=== PATIENT | male | born 1980 | race Caucasian/White ===

== ENCOUNTER 2023-03-05 08:52 | Emergency (ER) | payer MEDICARE, MEDICAID, SELFPAY ==
[2023-03-05 08:58] VITALS: BP 175/106; PULSE 80; RESP 24; TEMP 35.8; O2SAT 98; BMI 55.8
--- NOTE | 2023-03-05 09:14 | CRLHL7_ITS ---
For Patients: As a result of the Century Cures Act, medical imaging exams and procedure reports are released immediately into your electronic medical record. You may view this report before your referring provider. If you have questions, please contact your health care provider. INDICATION: Left abdominal and left flank pain COMPARISON: None TECHNIQUE: CT examination of the abdomen and pelvis was performed without intravenous contrast. Thin section axial images were obtained from the lung bases through the pubic symphysis. Oral contrast was not administered. Please note that all CT scans at this facility use dose modulation, iterative reconstruction, and/or weight-based dosing when appropriate to reduce radiation dose to as low as reasonably achievable. FINDINGS: LUNG BASES: The lung bases as visualized appear normal.The heart size is normal at the lung bases. LIVER/BILIARY SYSTEM:Enlarged fatty infiltrated liver. No focal mass or biliary ductal dilation.The gall bladder appears normal. ADRENALS: Normal non-contrast appearance KIDNEYS, URETERS and BLADDER:No intrarenal calculi on either side. There is left-sided obstructive uropathy due to a 7.2 millimeter calcified calculus at the left ureteropelvic junction. No calculi distally. There is gas within the bladder. This can be seen in recent instrumentation, infection with a gas-forming organism or fistula. I see no direct finding of fistula. Correlate with clinical findings in urinalysis. SPLEEN:Normal non-contrast appearance. PANCREAS: Normal non-contrast appearance. RETROPERITONEUM and MESENTERY: Increased attenuation to the upper abdominal mesenteric fat extending towards left with mildly prominent mesenteric lymph nodes. This consistent with mesenteric panniculitis. This is generally considered a self-limiting abnormality. GASTROINTESTINAL SYSTEM: There is no evidence of diverticulitis, colitis, mechanical obstruction, or appendicitis. The small bowel as visualized appears normal. PELVIS: No mass, adenopathy or free fluid.Air within the bladder as above OSSEOUS STRUCTURES and ABDOMINAL WALL: There is an age-appropriate appearance of the osseous structures.No significant abdominal wall defect. OTHER: No free fluid or free air. IMPRESSION: 1. Left-sided obstructive uropathy due to a 7.2 millimeter calcified calculus at the left ureteropelvic junction. No intrarenal calculi on either side. 2. There is gas within the bladder which can be due to infection with a gas-forming organism, recent instrumentation or fistula. There is no direct finding of fistula. Correlate with clinical findings in urinalysis. 3. Findings most consistent with mesenteric panniculitis as discussed above Please note that all CT scans at this facility use dose modulation, iterative reconstruction, and/or weight-based dosing when appropriate to reduce radiation dose to as low as reasonably achievable. Dictated by Mitchell Cowan MD @ 03/05/2023 9:40:36 AM (Electronically Signed)
--- NOTE | 2023-03-05 09:15 | ED.ABDPAIN ---
HPI - Abdominal Pain General Chief Complaint: Abdominal Pain Stated Complaint: L side pain Time Seen by Provider: 03/05/23 08:57 History of Present Illness HPI narrative: This 42-year-old male comes in reporting left sided abdominal pain that began this morning. He reports the pain is severe. He does not report any vomiting or altered bowel function. He is morbidly obese and weighs about 400 lb. He denies any prior history of kidney stone. He states that his urine seemed bubbly at the end of voiding. Related Data Previous Rx's Medication Instructions Recorded cephalexin 500 mg capsule 500 mg PO TID 7 days #21 caps 03/05/23 hydrocodone 5 mg-acetaminophen 325 1 tab PO Q4-6H PRN pain #20 tabs 03/05/23 mg tablet ketorolac 10 mg tablet 10 mg PO Q8H 5 days #15 tabs 03/05/23 ondansetron HCl 4 mg tablet 4 mg PO Q6H #20 tabs 03/05/23 tamsulosin 0.4 mg capsule (Flomax) 0.4 mg PO DAILY #10 caps 03/05/23 Allergies Allergy/AdvReac Type Severity Reaction Status Date / Time Penicillins Allergy Verified 03/05/23 08:57 Review of Systems Status of ROS Reports: 10 or more systems reviewed and unremarkable except as noted in History and below Narrative Constitutional: No fevers, no weight gain or loss. Eyes: No discharge. No vision changes. HENT: No congestion, no sore throat, no ear pain. Cardiovascular: No chest pain, no palpitations. Respiratory: No shortness of breath, no wheezes, no cough. Gastrointestinal: No vomiting, no diarrhea. Left-sided abdominal pain. Genitourinary: No dysuria, no hematuria. Musculoskeletal: Normal range of motion. Skin: No rashes, no pruritis. Neurological: No dizziness, weakness, sensory change, speech change. Endo/Heme/Allergies: No bruising or bleeding. No polydipsia. Pysch: no suicidality, no anxiety, no insomnia. All other systems reviewed and are negative. PFSH PFS Social History Smoking Status: Never smoker Do you use any of these nicotine containing products: None Second hand tobacco smoke exposure: Yes How often do you have a drink containing alcohol: monthly or less How many standard drinks containing alcohol do you have on a typical day: 1 or 2 How often do you have six or more drinks on one occasion: Never AUDIT-C Alcohol total score: 1 Non-prescribed substance use: denies use service: No Exam Narrative: Exam Narrative: Constitutional: Well-developed, well-nourished, no acute distress. HEENT: Normocephalic, atraumatic. Neck: Normal range of motion. Nontender. Supple. Heart: Regular. No murmurs. Normal rate. Intact distal pulses. Lungs: Clear to auscultation. No chest discomfort. No wheezes, rhonchi, or rales. Abdomen: Normal bowel sounds. Tenderness in the left abdomen and left lower quadrant. No flank pain when percussing over the left kidney. Genitalia: Deferred. Back: No midline tenderness. Normal range of motion. Extremities: Normal range of motion. No injury. Skin: Intact. No rash. Warm. No erythema or pallor. Neurologic: No altered sensation. No weakness. Alert and oriented. Psychiatric: No suicidality. No anxiety or depression. No insomnia. Nursing notes and vitals signs are reviewed. Const: Vital Signs, click to edit/add: Vital Signs - 24 hr 03/05/23 08:58 Temperature 96.5 F L Pulse Rate [Pulse Oximeter] 80 Respiratory Rate 24 Blood Pressure [Le ft Forearm] 175/106 H Pulse Oximetry 98 Oxygen Delivery Me thod Room Air Course Vital Signs Vital signs: Initial Vital Signs Temperature 96.5 F L 03/05/23 08:58 Temperature Source Temporal Artery Scan 03/05/23 08:58 Pulse Rate 80 03/05/23 08:58 Pulse Rhythm Regular 03/05/23 08:58 Respiratory Rate 24 03/05/23 08:58 Blood Pressure 175/106 H 03/05/23 08:58 Blood Pressure Mean 129 H 03/05/23 08:58 Blood Pressure Position Sitting 03/05/23 08:58 Pulse Oximetry 98 03/05/23 08:58 Oxygen Delivery Method Room Air 03/05/23 08:58 Vital Signs Temperature 96.5 F L 03/05/23 08:58 Pulse Rate 80 03/05/23 08:58 Respiratory Rate 24 03/05/23 08:58 Blood Pressure 175/106 H 03/05/23 08:58 Pulse Oximetry 98 03/05/23 08:58 Oxygen Delivery Method Room Air 03/05/23 08:58 Temperature 96.5 F L 03/05/23 08:58 Pulse Rate 80 03/05/23 08:58 Respiratory Rate 24 03/05/23 08:58 Blood Pressure 175/106 H 03/05/23 08:58 Pulse Oximetry 98 03/05/23 08:58 Oxygen Delivery Method Room Air 03/05/23 08:58 MDM - Abdominal Pain MDM Narrative Medical decision making narrative: This patient comes in with severe left-sided abdominal pain. An IV was established where he received Toradol 30 mg, Dilaudid 0.5 mg, and Zofran 4 mg. This brought sufficient relief of his discomfort. CT imaging of the abdomen and pelvis shows evidence of a 7 mm stone in the left renal pelvis or proximal ureter. Additionally he has some gas in his bladder from a gas producing pathogen. Urinalysis does show urinary tract infection. The patient has normal vital signs. He did receive an IV dose of Rocephin. He is okay to be discharged home and received prescriptions for Keflex, [place], Toradol, and Zofran. I stated that he may in fact need help from a urologist to deal with these circumstances and the removal of a stone. I advised him regarding signs and symptoms that would indicate need for return and re-evaluation. Lab Data Labs: Lab Results 03/05/23 03/05/23 Range/Units 09:10 09:45 WBC 8.69 (4.50-11.00) K/uL RBC 4.96 (4.30-5.90) m/uL Hgb 14.8 (13.5-17.5) gm/dL Hct 44.2 (37.0-53.0) % MCV 89 (80-100) fL MCH 30 (26-34) pg MCHC 34 (32-36) gm/dL RDW Coeff of [place] 12.7 (11.5-15.5) % Plt Count 198 (140-440) K/uL Neut % (Auto) 74.2 H (42.0-72.0) % Lymph % (Auto) 19.7 L (20-44) % [place] % (Auto) 4.0 (0.0-11.0) % Eos % (Auto) 1.2 (0.0-7.0) % Baso % (Auto) 0.1 (0.0-3.0) % Neut # (Auto) 6.40 (1.7-7.0) K/uL Lymph # (Auto) 1.70 (0.90-2.90) K/uL [place] # (Auto) 0.30 (0.00-0.90) K/UL Eos # (Auto) 0.10 (0.00-0.50) K/uL Baso # (Auto) 0.01 (0.00-0.30) K/uL Abs Immat Gran (auto) 0.07 (0.00-0.30) K/uL Imm/Tot Granulo (auto) 0.8 % Sodium 135 (135-149) mmol/L Potassium 3.6 (3.6-5.1) mmol/L Chloride 93 L (96-114) mmol/L Carbon Dioxide 26 (20-32) mmol/L Anion Gap 16 H (7-15) mEq/L BUN 10 (5-24) mg/dL Creatinine 0.8 (0.5-1.5) mg/dL Estimated Creat Clear 128.11 Estimated GFR 113 ml/min Glucose 256 H (60-115) mg/dL Calcium 8.8 (8.4-10.6) mg/dL Urine Color Yellow (Yellow) Urine Appearance Cloudy A (Clear) Urine pH 6.0 (5.0-8.5) Ur Specific [place] >= 1.030 (1.000-1.030) Urine Protein 3+ A (Negative) Urine Glucose (UA) Negative (Negative) Urine Ketones Trace A (Negative) Urine Blood 2+ A (Negative) Urine Nitrite Positive A (Negative) Urine Bilirubin Negative (Negative) Urine Urobilinogen 0.2 (0.2-1.0) Ur Leukocyte Esterase 3+ A (Negative) Urine RBC 25-50 A (0-2) Urine WBC >100 A (0-5) Ur Squamous Epith Cells Few (None-Few) Other Sediment (None) Urine Bacteria Many A (None) Imaging Data CT scan - abdomen: Radiologist's impression: 1. Left-sided obstructive uropathy due to a 7.2 millimeter calcified calculus at the left ureteropelvic junction. No intrarenal calculi on either side. 2. There is gas within the bladder which can be due to infection with a gas-forming organism, recent instrumentation or fistula. There is no direct finding of fistula. Correlate with clinical findings in urinalysis. 3. Findings most consistent with mesenteric panniculitis as discussed above Discharge Plan Discharge Clinical Impression: Urinary tract infection, Calculus of kidney Patient Disposition: Home w/ Parent or Adult Condition: Improved Instructions: Kidney Stones (ED) Additional Instructions: take medication as prescribed. Drink plenty of fluids. follow-up with clinic or urologist if symptoms are persistent or return if worsening. Prescriptions: New hydrocodone-acetaminophen 5-325 mg tablet 1 tab PO Q4-6H PRN (Reason: pain) Qty: 20 0RF ketorolac 10 mg tablet 10 mg PO Q8H 5 Days Qty: 15 0RF tamsulosin [Flomax] 0.4 mg capsule 0.4 mg PO DAILY Qty: 10 2RF cephalexin 500 mg capsule 500 mg PO TID 7 Days Qty: 21 0RF ondansetron HCl 4 mg tablet 4 mg PO Q6H Qty: 20 0RF Follow Up/Referrals: Rajni Drummond PA-C [Referring] - Stand Alone Forms[facility]
[2023-03-05] MEDS: HYDROmorphone 0.5 mg/0.5 ml inj IVP ×2 (09:50→10:58)
[2023-03-05 09:55] LABS: Basophils Absolute Auto 0.01 K/uL (0.00-0.30); Basophils Percent Auto 0.1 % (0.0-3.0); Eosinophils Percent Auto 1.2 % (0.0-7.0); Hematocrit 44.2 % (37.0-53.0); Hemoglobin* 14.8 gm/dL (13.5-17.5); Immature Granulocytes Abs Auto 0.07 K/uL (0.00-0.30); Immature Granulocytes Pct Auto 0.8 %; Lymphocytes Percent Auto 19.7 % (20-44); Mean Corpuscular HGB Conc 34 gm/dL (32-36); Mean Corpuscular Hemoglobin 30 pg (26-34); Mean Corpuscular Volume 89 fL (80-100); Neutrophils Percent Auto 74.2 % (42.0-72.0); Platelet Count* 198 K/uL (140-440); RDW Coefficient of Variation % 12.7 % (11.5-15.5); Red Blood Count 4.96 m/uL (4.30-5.90); White Blood Count* 8.69 K/uL (4.50-11.00)
[2023-03-05] MEDS: KETOROLAC 30 MG/ML inj IVP (09:56)
[2023-03-05] MEDS: ONDANSETRON 2 MG/ML inj 4 MG IVP (09:57)
[2023-03-05 10:03] LABS: Slide Review Reflex No
[2023-03-05 10:03] LABS: Appearance Urine Cloudy (Clear); Bilirubin Urine Negative (Negative); Blood Urine 2+ (Negative); Color Urine Yellow (Yellow); Glucose Urine Negative (Negative); Ketones Urine Trace (Negative); Leukocyte Esterase Urine 3+ (Negative); Nitrite Urine Positive (Negative); Protein Urine 3+ (Negative); Specific Gravity Urine >= 1.030 (1.000-1.030); Urobilinogen Urine 0.2 (0.2-1.0)
[2023-03-05 10:08] LABS: Chloride* 93 mmol/L (96-114); Potassium* 3.6 mmol/L (3.6-5.1); Sodium* 135 mmol/L (135-149)
[2023-03-05 10:10] LABS: RBC Urine 25-50 (0-2); WBC Urine >100 (0-5)
[2023-03-05 10:11] LABS: Anion Gap 16 mEq/L (7-15); Blood Urea Nitrogen* 10 mg/dL (5-24); Calcium* 8.8 mg/dL (8.4-10.6); Carbon Dioxide* 26 mmol/L (20-32); Creatinine* 0.8 mg/dL (0.5-1.5); Est. Creatinine Clearance* 128.11; Estimated Glomerular Filt Rate 113 ml/min; Glucose* 256 mg/dL (60-115)
[2023-03-05 10:11] LABS: Bacteria Urine Many; Squamous Epithelial Cell Urine Few (None-Few)
[2023-03-05] MEDS: cefTRIAXone 1 GM in 0.9 % SODIUM CHLORIDE Mini-bag 100 ML IVPB (11:10)
== END 2023-03-05 11:41 | disposition home or self-care (01) ==
PROVIDERS: Emergency Provider Emergency Medicine Emergency Medical Services
DX: N39.0 Urinary tract infection, site not specified (principal); N20.0 Calculus of kidney
CPT/HCPCS: 36415; 74176; 80048; 81001; 85025; 87086; 87186; 96365; 96375; 99284; J0696; J1170; J1885; J2405

== ENCOUNTER 2023-03-27 18:58 | Emergency (ER) | payer MEDICARE, MEDICAID, SELFPAY ==
[2023-03-27 19:13] VITALS: BP 121/66; PULSE 118; RESP 18; TEMP 39.1; O2SAT 98; BMI 62.5
[2023-03-27 19:53] LABS: Lactate* 2.4 mmol/L (0.5-1.9)
[2023-03-27 19:59] LABS: Basophils Percent Auto 0.1 % (0.0-3.0); Eosinophils Percent Auto 0.2 % (0.0-7.0); Hematocrit 41.2 % (37.0-53.0); Hemoglobin* 13.8 gm/dL (13.5-17.5); Immature Granulocytes Pct Auto 0.5 %; Lymphocytes Percent Auto 14.8 % (20-44); Mean Corpuscular HGB Conc 34 gm/dL (32-36); Mean Corpuscular Hemoglobin 30 pg (26-34); Mean Corpuscular Volume 88 fL (80-100); Monocytes Percent Auto 8.7 % (0.0-11.0); Neutrophils Percent Auto 75.7 % (42.0-72.0); Platelet Count* 198 K/uL (140-440); Red Blood Count 4.66 m/uL (4.30-5.90); White Blood Count* 12.93 K/uL (4.50-11.00)
--- NOTE | 2023-03-27 20:04 | ED.GENADULT ---
HPI - General Adult General Chief complaint: Fever Stated complaint: fever, nausea, pain Time Seen by Provider: 03/27/23 20:03 History of Present Illness HPI narrative: week ago kidney stone. states now headache, stiff body fever 103.x. states 1600 tylenol and ibuprofen. 7mm kidney stone. urology apt thursday in [facility] but states cant wait feels terrible 42-year-old man presenting to the emergency department with complaint of fever and increasing and stabbing pain in the left low abdominal area. He is nauseated. Has not been vomiting. He was seen on 03/05 in this department and diagnosed with a left-sided proximal 7 mm ureteral stone and a panniculitis. Was doing better and over the last couple of days now much worse. Is not having trouble urinating and has noticed any hematuria. He is not not having any diarrhea. No cough or cold symptoms. He aches all over. Feel stiff. Has had trouble getting a urology appointment but apparently has an appointment in 3 days time but does not feel he can wait. Has a headache as well. Was discharged on cephalexin for a week. Denies rashes or blisters. Reviewing records noting CT imaging done. There was also note of gas being formed in the bladder. See below. Urine cultures grew Klebsiella which was broadly sensitive. Related Data Previous Rx's Medication Instructions Recorded cephalexin 500 mg capsule 500 mg PO TID 7 days #21 caps 03/05/23 hydrocodone 5 mg-acetaminophen 325 1 tab PO Q4-6H PRN pain #20 tabs 03/05/23 mg tablet ketorolac 10 mg tablet 10 mg PO Q8H 5 days #15 tabs 03/05/23 ondansetron HCl 4 mg tablet 4 mg PO Q6H #20 tabs 03/05/23 tamsulosin 0.4 mg capsule (Flomax) 0.4 mg PO DAILY #10 caps 03/05/23 Allergies Allergy/AdvReac Type Severity Reaction Status Date / Time Penicillins Allergy Verified 03/27/23 21:56 Review of Systems Status of ROS: Reports: 6 or more systems reviewed and unremarkable except as noted in History and below PFSH PFS Social History Smoking Status: Never smoker Do you use any of these nicotine containing products: None Second hand tobacco smoke exposure: Yes How often do you have a drink containing alcohol: monthly or less How many standard drinks containing alcohol do you have on a typical day: 1 or 2 How often do you have six or more drinks on one occasion: Never AUDIT-C Alcohol total score: 1 Non-prescribed substance use: denies use service: No Exam Narrative: Exam Narrative: Large man, obese. Clearly uncomfortable. Mentating normally. Seated in the bed. Mildly labored in breathing but not tachypneic. Is diaphoretic. Blotches of faint erythema; do not actually look cellulitic on his arms he says that because of his shirt. Extremities are well perfused Face is flushed. Oropharynx is WNL. Lungs are clear. Heart is tachycardic in a regular rhythm. Distant. Abdomen obese soft. No induration of the skin to suggest a panniculitis today. No intertrigo Const: Vital Signs, click to edit/add: Vital Signs - 24 hr 03/27/23 19:13 03/27/23 20:19 03/27/23 22:59 Temperature 102.4 F H Pulse Rate [Pulse Oximeter] 118 H 90 Respiratory Rate 18 16 Blood Pressure [Ri ght Upper Arm] 121/66 118/77 Pulse Oximetry 98 97 97 Oxygen Delivery Me thod Room Air Room Air 03/27/23 23:20 Temperature 98.5 F Pulse Rate [Pulse Oximeter] 86 Respiratory Rate 16 Blood Pressure [Ri ght Upper Arm] 123/81 Pulse Oximetry 97 Oxygen Delivery Me thod Room Air Documenting provider has reviewed patient's vital signs: yes Course Vital Signs Vital signs: Initial Vital Signs Temperature 102.4 F H 03/27/23 19:13 Temperature Source Temporal Artery Scan 03/27/23 19:13 Pulse Rate 118 H 03/27/23 19:13 Respiratory Rate 18 03/27/23 19:13 Blood Pressure 121/66 03/27/23 19:13 Blood Pressure Mean 84 03/27/23 19:13 Blood Pressure Position Sitting 03/27/23 19:13 Pulse Oximetry 98 03/27/23 19:13 Oxygen Delivery Method Room Air 03/27/23 19:13 Sepsis Action Taken by Nursing No Action Required 03/27/23 19:13 Vital Signs Temperature 102.4 F H 03/27/23 19:13 Pulse Rate 118 H 03/27/23 19:13 Respiratory Rate 18 03/27/23 19:13 Blood Pressure 121/66 03/27/23 19:13 Pulse Oximetry 98 03/27/23 19:13 Oxygen Delivery Method Room Air 03/27/23 19:13 Temperature 98.5 F 03/27/23 23:20 Pulse Rate 86 03/27/23 23:20 Respiratory Rate 16 03/27/23 23:20 Blood Pressure 123/81 03/27/23 23:20 Pulse Oximetry 97 03/27/23 23:20 Oxygen Delivery Method Room Air 03/27/23 23:20 Medications Administered Medications: Discontinued Medications Generic Name Dose Route Start Last Admin Trade Name Freq PRN Reason Stop Dose Admin Lactated Ringer's 1,000 mls @ 1,000 mls/hr 03/27/23 20:42 03/27/23 22:04 Lactated Ringers 1000 Ml IV 03/27/23 21:41 Infused .Q1H ONE Infusion Sodium Chloride 1,000 mls @ 1,000 mls/hr 03/27/23 20:42 03/27/23 22:04 0.9 % Sodium Chloride 1000 Ml IV 03/27/23 21:41 Infused .Q1H ONE Infusion Piperacillin Sod/Tazobactam 100 mls @ 200 mls/hr 03/27/23 22:01 03/27/23 22:53 Sod 4.5 gm/ Sodium Chloride IVPB 03/27/23 22:02 Infused ONCE ONE Infusion Vancomycin HCl 2,000 mg/ 520 mls @ 260 mls/hr 03/27/23 22:01 03/27/23 22:52 Sodium Chloride IVPB 03/27/23 22:02 260 mls/hr ONCE ONE Administration Protocol Ketorolac Tromethamine 15 mg 03/27/23 20:21 03/27/23 20:49 Ketorolac 15 Mg/Ml Inj IVP 03/27/23 20:22 15 mg ONCE ONE Administration Morphine Sulfate 4 mg 03/27/23 20:21 03/27/23 20:49 Morphine 4 Mg/Ml Inj IVP 03/27/23 20:22 4 mg ONCE ONE Administration Ondansetron HCl 4 mg 03/27/23 20:30 03/27/23 20:50 Ondansetron 2 Mg/Ml Inj IVP 03/27/23 20:31 4 mg ONCE ONE Administration Medical Decision Making MDM Narrative Medical decision making narrative: Reviewed records. Reviewed images. By the time I am seeing Mr. Mitchell, lactate has returned at 2.4 and CBC is elevated with white count of almost 13,000 Certainly of primary concern is sepsis with a urinary tract source related to retained ureteral stone. His pain is in a similar area as before. Is not sure that has moved a whole lot. KUB to locate stone could be considered but I think given body habitus this would be not ideal. As he has presented with indications of sepsis in for renal function to order IV contrasted CT of abdomen and pelvis. Of course could have concurrent COVID or influenza Has already been ordered for a couple of L of crystalloid. [place] body weight would suggest 3 L Anticipate initiating antibiotics once blood cultures and urine is collected. CT scan reviewed by me shows persistent left-sided ureteral stone prior measured at 7 mm, at the left UVJ. Attempting to order antibiotics reveals penicillin allergy. Able to clarify this. Sounds like they think he had a rash in as a baby. They are pretty sure he had amoxicillin since without difficulty. Urinalysis looks infected and likely source. Prescribing Zosyn and vanco. Radiology over-read of contrasted CT scan of abdomen and pelvis below March 05, 2023. FINDINGS: Lower chest: Scattered atelectasis. Liver: Hepatic steatosis. No suspicious masses. Gallbladder and bile ducts: Unremarkable. No stones or inflammation. No biliary dilatation. Pancreas: Unremarkable. No mass or inflammation. Spleen: Unremarkable. Normal in size. No masses. Adrenal glands: Unremarkable. No nodules. Kidneys: Persistent left-sided hydronephrosis secondary to 7 millimeter obstructing left UPJ stone. GI tract: Unremarkable. Normal in caliber. No sign of mass or inflammation. Normal appendix. Vasculature: Abdominal aorta is normal in caliber. Mesenteric arteries are patent. Lymph nodes: No lymphadenopathy. Peritoneum/Abdominal Wall: Unremarkable. No sign of mass or infiltration. No free air or significant free fluid. Pelvis: Unremarkable. Bones: Unremarkable for age. IMPRESSION: Persistent left-sided hydronephrosis secondary 7 miliary starting left UPJ stone. Recommend correlation with urinalysis to evaluate for superimposed infection. Hepatic steatosis. Otherwise, no acute intra-abdominal/pelvic abnormality. Have called around to various locations in speaking with Urology as well. Finally able to get acceptance for transfer to [facility] for more definitive care. Blood pressure is stable. Pulse improved no longer tachycardic and afebrile. Medical Records Medical records reviewed: Yes I reviewed the patient's medical records Medical records narrative: Imaging from 03/05/2023 CT examination of the abdomen and pelvis was performed without intravenous contrast. Thin section axial images were obtained from the lung bases through the pubic symphysis. Oral contrast was not administered. Please note that all CT scans at this facility use dose modulation, iterative reconstruction, and/or weight-based dosing when appropriate to reduce radiation dose to as low as reasonably achievable. FINDINGS: LUNG BASES: The lung bases as visualized appear normal.The heart size is normal at the lung bases. LIVER/BILIARY SYSTEM:Enlarged fatty infiltrated liver. No focal mass or biliary ductal dilation.The gall bladder appears normal. ADRENALS: Normal non-contrast appearance KIDNEYS, URETERS and BLADDER:No intrarenal calculi on either side. There is left-sided obstructive uropathy due to a 7.2 millimeter calcified calculus at the left ureteropelvic junction. No calculi distally. There is gas within the bladder. This can be seen in recent instrumentation, infection with a gas-forming organism or fistula. I see no direct finding of fistula. Correlate with clinical findings in urinalysis. SPLEEN:Normal non-contrast appearance. PANCREAS: Normal non-contrast appearance. RETROPERITONEUM and MESENTERY: Increased attenuation to the upper abdominal mesenteric fat extending towards left with mildly prominent mesenteric lymph nodes. This consistent with mesenteric panniculitis. This is generally considered a self-limiting abnormality. GASTROINTESTINAL SYSTEM: There is no evidence of diverticulitis, colitis, mechanical obstruction, or appendicitis. The small bowel as visualized appears normal. PELVIS: No mass, adenopathy or free fluid.Air within the bladder as above OSSEOUS STRUCTURES and ABDOMINAL WALL: There is an age-appropriate appearance of the osseous structures.No significant abdominal wall defect. OTHER: No free fluid or free air. IMPRESSION: 1. Left-sided obstructive uropathy due to a 7.2 millimeter calcified calculus at the left ureteropelvic junction. No intrarenal calculi on either side. 2. There is gas within the bladder which can be due to infection with a gas-forming organism, recent instrumentation or fistula. There is no direct finding of fistula. Correlate with clinical findings in urinalysis. 3. Findings most consistent with mesenteric panniculitis as discussed above Lab Data Lab results reviewed: Yes I reviewed the patient's lab results Labs: Lab Results 03/27/23 03/27/23 03/27/23 Range/Units 19:41 19:42 20:20 WBC 12.93 H (4.50-11.00) K/uL RBC 4.66 (4.30-5.90) m/uL Hgb 13.8 (13.5-17.5) gm/dL Hct 41.2 (37.0-53.0) % MCV 88 (80-100) fL MCH 30 (26-34) pg MCHC 34 (32-36) gm/dL RDW Coeff of Aleah 13.0 (11.5-15.5) % Plt Count 198 (140-440) K/uL Neut % (Auto) 75.7 H (42.0-72.0) % Lymph % (Auto) 14.8 L (20-44) % [place] % (Auto) 8.7 (0.0-11.0) % Eos % (Auto) 0.2 (0.0-7.0) % Baso % (Auto) 0.1 (0.0-3.0) % Neut # (Auto) 9.80 H (1.7-7.0) K/uL Lymph # (Auto) 1.90 (0.90-2.90) K/uL [place] # (Auto) 1.10 H (0.00-0.90) K/UL Eos # (Auto) 0.00 (0.00-0.50) K/uL Baso # (Auto) 0.00 (0.00-0.30) K/uL Abs Immat Gran (auto) 0.10 (0.00-0.30) K/uL Imm/Tot Granulo (auto) 0.5 % VBG pH (7.32-7.43) VBG pCO2 (40-50) mmHG VBG pO2 (25-47) mmHG VBG HCO3 (21-28) mmol/L Sodium 129 L (135-149) mmol/L Potassium 3.6 (3.6-5.1) mmol/L Chloride 89 L (96-114) mmol/L Carbon Dioxide 30 (20-32) mmol/L Anion Gap 10 (7-15) mEq/L BUN 10 (5-24) mg/dL Creatinine 0.8 (0.5-1.5) mg/dL Estimated Creat Clear 128.11 Estimated GFR 113 ml/min Glucose 225 H (60-115) mg/dL Lactate 2.4 H (0.5-1.9) mmol/L Calcium 8.7 (8.4-10.6) mg/dL Total Bilirubin (0.1-1.5) mg/dL Direct Bilirubin (0.0-0.5) mg/dL AST (12-35) U/L ALT (4-50) U/L Alkaline Phosphatase (40-150) U/L Troponin I (0.01-0.04) ng/mL Total Protein (6.0-8.3) g/dL Albumin (3.3-5.0) g/dL Procalcitonin (<0.50) ng/mL Urine Color (Yellow) Urine Appearance (Clear) Urine pH (5.0-8.5) Ur Specific Juda (1.000-1.030) Urine Protein (Negative) Urine Glucose (UA) (Negative) Urine Ketones (Negative) Urine Blood (Negative) Urine Nitrite (Negative) Urine Bilirubin (Negative) Urine Urobilinogen (0.2-1.0) Ur Leukocyte Esterase (Negative) Urine RBC (0-2) Urine WBC (0-5) Urine WBC Clumps (None) Ur Squamous Epith Cells (None-Few) Urine Bacteria (None) SARS-CoV-2 (PCR) Negative SARS-CoV-2 (Negative) Influenza Type A (PCR) Negative PCR FLU A (Negative) Influenza Type B (PCR) Negative PCR FLU B (Negative) RSV (PCR) Negative PCR RSV (Negative) 03/27/23 03/27/23 Range/Units 20:27 21:13 WBC (4.50-11.00) K/uL RBC (4.30-5.90) m/uL Hgb (13.5-17.5) gm/dL Hct (37.0-53.0) % MCV (80-100) fL MCH (26-34) pg MCHC (32-36) gm/dL RDW Coeff of Aleah (11.5-15.5) % Plt Count (140-440) K/uL Neut % (Auto) (42.0-72.0) % Lymph % (Auto) (20-44) % [place] % (Auto) (0.0-11.0) % Eos % (Auto) (0.0-7.0) % Baso % (Auto) (0.0-3.0) % Neut # (Auto) (1.7-7.0) K/uL Lymph # (Auto) (0.90-2.90) K/uL [place] # (Auto) (0.00-0.90) K/UL Eos # (Auto) (0.00-0.50) K/uL Baso # (Auto) (0.00-0.30) K/uL Abs Immat Gran (auto) (0.00-0.30) K/uL Imm/Tot Granulo (auto) % VBG pH 7.486 H (7.32-7.43) VBG pCO2 39 L (40-50) mmHG VBG pO2 72.3 H (25-47) mmHG VBG HCO3 29 H (21-28) mmol/L Sodium (135-149) mmol/L Potassium (3.6-5.1) mmol/L Chloride (96-114) mmol/L Carbon Dioxide (20-32) mmol/L Anion Gap (7-15) mEq/L BUN (5-24) mg/dL Creatinine (0.5-1.5) mg/dL Estimated Creat Clear Estimated GFR ml/min Glucose (60-115) mg/dL Lactate (0.5-1.9) mmol/L Calcium (8.4-10.6) mg/dL Total Bilirubin 1.5 (0.1-1.5) mg/dL Direct Bilirubin 0.1 (0.0-0.5) mg/dL AST 36 H (12-35) U/L ALT 32 (4-50) U/L Alkaline Phosphatase 135 (40-150) U/L Troponin I < 0.01 L (0.01-0.04) ng/mL Total Protein 7.3 (6.0-8.3) g/dL Albumin 4.1 (3.3-5.0) g/dL Procalcitonin 0.29 (<0.50) ng/mL Urine Color Yellow (Yellow) Urine Appearance Cloudy A (Clear) Urine pH 6.5 (5.0-8.5) Ur Specific Juda 1.015 (1.000-1.030) Urine Protein 1+ A (Negative) Urine Glucose (UA) Negative (Negative) Urine Ketones 1+ A (Negative) Urine Blood 2+ A (Negative) Urine Nitrite Positive A (Negative) Urine Bilirubin Negative (Negative) Urine Urobilinogen 0.2 (0.2-1.0) Ur Leukocyte Esterase 3+ A (Negative) Urine RBC 2-5 A (0-2) Urine WBC >100 A (0-5) Urine WBC Clumps None (None) Ur Squamous Epith Cells None (None-Few) Urine Bacteria Many A (None) SARS-CoV-2 (PCR) (Negative) Influenza Type A (PCR) (Negative) Influenza Type B (PCR) (Negative) RSV (PCR) (Negative) ECG Data Attestation: I personally reviewed and interpreted this ECG as follows: (Sinus tachycardia at 103 without acute ischemic changes.) Critical Care Time Critical Care Time Critical Care Time: Yes Attestation: The patient required my highest level preparedness to intervene emergently and I personally spent this critical care time directly and personally managing the patient. This critical care time included: Obtaining a history; Examining the patient; Pulse oximetry; Ordering and reviewing of studies; Arranging urgent treatment with development of a management plan; Evaluation of patients response to treatment; Frequent reassessment discussions with other providers. This critical care time was performed to assess and manage the high probability of imminent life-threatening deterioration that could result in multiorgan failure. It was exclusive of separate billable procedures and treating other patients and teaching time. Total Critical Care Time in Minutes: 60 Discharge Plan Discharge Clinical Impression: UTI (urinary tract infection), Sepsis, Left ureteral calculus Patient Disposition: Xfer Other Discharge Location: [facility] Condition: Guarded Prescriptions: No Action hydrocodone-acetaminophen 5-325 mg tablet 1 tab PO Q4-6H PRN (Reason: pain) Qty: 20 0RF ketorolac 10 mg tablet 10 mg PO Q8H 5 Days Qty: 15 0RF tamsulosin [Flomax] 0.4 mg capsule 0.4 mg PO DAILY Qty: 10 2RF cephalexin 500 mg capsule 500 mg PO TID 7 Days Qty: 21 0RF ondansetron HCl 4 mg tablet 4 mg PO Q6H Qty: 20 0RF Stand Alone Forms: My[facility] Info Instructions
[2023-03-27 20:06] LABS: Slide Review Reflex No
[2023-03-27 20:13] LABS: Chloride* 89 mmol/L (96-114); Sodium* 129 mmol/L (135-149)
[2023-03-27 20:14] LABS: Potassium* 3.6 mmol/L (3.6-5.1)
[2023-03-27 20:16] LABS: Anion Gap 10 mEq/L (7-15); Carbon Dioxide* 30 mmol/L (20-32); Creatinine* 0.8 mg/dL (0.5-1.5); Est. Creatinine Clearance* 128.11; Estimated Glomerular Filt Rate 113 ml/min
[2023-03-27 20:17] LABS: Blood Urea Nitrogen* 10 mg/dL (5-24); Calcium* 8.7 mg/dL (8.4-10.6); Glucose* 225 mg/dL (60-115)
[2023-03-27 20:19] VITALS: O2SAT 97
[2023-03-27 20:32] LABS: HCO3 VBG 29 mmol/L (21-28); PCO2 VBG 39 mmHG (40-50); PO2 VBG 72.3 mmHG (25-47); pH VBG 7.486 (7.32-7.43)
[2023-03-27] MEDS: KETOROLAC 15 MG/ML inj IVP (20:49)
[2023-03-27] MEDS: MORPHINE 4 MG/ML INJ IVP (20:49)
[2023-03-27] MEDS: LACTATED RINGERS 1000 ML 1,000 ML IV (20:50)
[2023-03-27] MEDS: ONDANSETRON 2 MG/ML inj 4 MG IVP (20:50)
[2023-03-27] MEDS: 0.9 % SODIUM CHLORIDE 1000 ml 1,000 ML IV (20:50)
[2023-03-27 20:54] LABS: Albumin* 4.1 g/dL (3.3-5.0)
[2023-03-27 20:56] LABS: Total Protein* 7.3 g/dL (6.0-8.3)
[2023-03-27 20:57] LABS: Alanine Aminotransferase* 32 U/L (4-50); Alkaline Phosphatase* 135 U/L (40-150); Aspartate Amino Transferase* 36 U/L (12-35); Bilirubin Direct* 0.1 mg/dL (0.0-0.5); Bilirubin Total* 1.5 mg/dL (0.1-1.5)
--- NOTE | 2023-03-27 20:57 | CRLHL7_ITS ---
For Patients: As a result of the Century Cures Act, medical imaging exams and procedure reports are released immediately into your electronic medical record. You may view this report before your referring provider. If you have questions, please contact your health care provider. INDICATION: Recent left ureteral stone, now fever. TECHNIQUE: CT abdomen and pelvis acquired with 150 cc Isovue 370 IV contrast. COMPARISON: March 05, 2023. FINDINGS: Lower chest: Scattered atelectasis. Liver: Hepatic steatosis. No suspicious masses. Gallbladder and bile ducts: Unremarkable. No stones or inflammation. No biliary dilatation. Pancreas: Unremarkable. No mass or inflammation. Spleen: Unremarkable. Normal in size. No masses. Adrenal glands: Unremarkable. No nodules. Kidneys: Persistent left-sided hydronephrosis secondary to 7 millimeter obstructing left UPJ stone. GI tract: Unremarkable. Normal in caliber. No sign of mass or inflammation. Normal appendix. Vasculature: Abdominal aorta is normal in caliber. Mesenteric arteries are patent. Lymph nodes: No lymphadenopathy. Peritoneum/Abdominal Wall: Unremarkable. No sign of mass or infiltration. No free air or significant free fluid. Pelvis: Unremarkable. Bones: Unremarkable for age. IMPRESSION: Persistent left-sided hydronephrosis secondary 7 miliary starting left UPJ stone. Recommend correlation with urinalysis to evaluate for superimposed infection. Hepatic steatosis. Otherwise, no acute intra-abdominal/pelvic abnormality. Please note that all CT scans at this facility use dose modulation, iterative reconstruction, and/or weight-based dosing when appropriate to reduce radiation dose to as low as reasonably achievable. Dictated by Yosvany Gonzalez MD @ 03/27/2023 10:07:05 PM (Electronically Signed)
[2023-03-27 21:12] LABS: PCR FLU A Negative PCR FLU A (Negative); PCR FLU B Negative PCR FLU B (Negative); PCR RSV Negative PCR RSV (Negative)
[2023-03-27 21:14] LABS: Procalcitonin* 0.29 ng/mL (<0.50)
[2023-03-27 21:15] LABS: SARS PCR* Negative SARS-CoV-2 (Negative)
[2023-03-27 21:15] LABS: Troponin I* < 0.01 ng/mL (0.01-0.04)
[2023-03-27 21:18] LABS: Appearance Urine Cloudy (Clear); Bilirubin Urine Negative (Negative); Blood Urine 2+ (Negative); Color Urine Yellow (Yellow); Glucose Urine Negative (Negative); Ketones Urine 1+ (Negative); Leukocyte Esterase Urine 3+ (Negative); Nitrite Urine Positive (Negative); Protein Urine 1+ (Negative); Specific Gravity Urine 1.015 (1.000-1.030); Urobilinogen Urine 0.2 (0.2-1.0); pH Urine 6.5 (5.0-8.5)
[2023-03-27 21:55] LABS: Bacteria Urine Many; WBC Urine >100 (0-5)
[2023-03-27] MEDS: PIPERACILLIN/TAZOBACTAM 4.5 GM in 0.9 % SODIUM CHLORIDE Mini-bag 100 ML IVPB (22:15)
[2023-03-27 22:59] VITALS: BP 118/77; PULSE 90; RESP 16; O2SAT 97
[2023-03-27 23:20] VITALS: BP 123/81; PULSE 86; RESP 16; TEMP 36.9; O2SAT 97
--- NOTE | 2023-03-27 23:44 | ED.NURSE ---
report to [facility] nurse med surg 5 room 500. ems at bedside for transport.
== END 2023-03-27 23:47 | disposition other institution (70) ==
PROVIDERS: Emergency Provider Family Medicine
DX: A41.9 Sepsis, unspecified organism (principal); N39.0 Urinary tract infection, site not specified; N20.1 Calculus of ureter
CPT/HCPCS: 36415; 74177; 80048; 80076; 81001; 82803; 83605; 84145; 84484; 85025; 87040; 87086; 87186; 87631; 93005; 94761; 96365; 96375; 99284; 99285; 99291; J1885; J2270; J2405; J2543; J3370; J7030; J7120; Q9967

== ENCOUNTER 2023-03-27 23:37 | Outpatient (CLI) | payer MEDICARE, MEDICAID, SELFPAY | END 2023-03-27 23:38 | disposition home or self-care (01) | LOC: AMB 03-30 11:44 | PROVIDERS: Visit Provider Family Medicine | DX: R50.9 Fever, unspecified (principal); M54.9 Dorsalgia, unspecified | CPT/HCPCS: A0425; A0434 ==